=== PATIENT | male | born 1955 | race Hispanic/Latino ===

== ENCOUNTER 2019-03-30 09:30 | Inpatient (IN) | payer SELFPAY ==
[2019-03-30] VITALS (21 sets, daily range): BP systolic 95–156; BP diastolic 56–91
[~2019-03-30] VITALS: Ht 177.8 cm; Wt 72.4 kg
[2019-03-30] MEDS ORDERED: ONDANSETRON HCL 4 MG/2 ML VIAL ONE ×2 (10:30→14:28)
[2019-03-30] MEDS ORDERED: SODIUM CHLORIDE 0.9% 1000ML 1,000 ML IV ONE ×2 (10:31→13:03)
[2019-03-30] MEDS ORDERED: MORPHINE SULFATE 4 MG/1ML SYG ONE ×2 (10:31→11:56)
[2019-03-30 10:46] LABS: BASOPHILS % (AUTO) 0.5 % (0.0-5.0); EOSINOPHILS % (AUTO) 0.8 % (0.0-8.0); HEMATOCRIT 43.8 % (42-54); LYMPHOCYTES % (AUTO) 15.9 % (21.0-51.0); MEAN CORPUSCULAR HEMOGLOBIN 31.7 pg (27.0-33.0); MEAN CORPUSCULAR HGB CONC 35.2 g/dL (32.0-36.0); MEAN CORPUSCULAR VOLUME 89.8 fL (79-99); MONOCYTES % (AUTO) 6.1 % (3.0-13.0); NEUTROPHILS % (AUTO) 76.7 % (40.0-77.0); PLATELET COUNT (AUTO) 109 K/uL (130-400); RED BLOOD CELL COUNT(AUTO) 4.87 MIL/uL (4.50-6.20); RED CELL DISTRIBUTION WIDTH 13.9 % (11.0-15.5); WHITE BLOOD COUNT (AUTO) 8.6 K/uL (4.8-10.8)
[2019-03-30 10:57] LABS: INR 0.96 (0.85-1.15); PARTIAL THROMBOPLASTIN TIME 24.3 SEC (26.3-35.5); PROTHROMBIN TIME 10.1 SEC (9.6-11.6)
[2019-03-30 11:03] LABS: ALBUMIN 4.1 g/dL (3.5-5.0); BILIRUBIN,TOTAL 0.6 mg/dL (0.2-1.0); TOTAL PROTEIN, SERUM 7.8 g/dL (6.0-8.3)
[2019-03-30] MEDS ORDERED: IOHEXOL-350 75 ML VIAL IV ONE (11:08)
[2019-03-30] MEDS ORDERED: KETOROLAC TROMETHAMINE 30MG/ML ONE (12:07)
[2019-03-30] MEDS ORDERED: ZOSYN 3.375GM+NS 50ML 50 ML IV ONE (12:47)
[2019-03-30] MEDS ORDERED: HYDROMORPHONE 1 MG/1 ML AMP ONE (13:02)
[2019-03-30] MEDS ORDERED: BUPIVACAINE/PF 0.5% 30ML VIAL ONE (13:58)
[2019-03-30] MEDS ORDERED: DEXAMETHASONE SOD PHOSPHATE 10MG/ML 1ML VIAL ONE (14:27)
[2019-03-30] MEDS ORDERED: SUCCINYLCHOLINE 200MG/10ML SYR ONE (14:27)
[2019-03-30] MEDS ORDERED: LIDOCAINE PF 2% 5ML ABBOJECT ONE (14:27)
[2019-03-30] MEDS ORDERED: PROPOFOL 10 MG/ML 20ML VIAL IV ONE (14:28)
[2019-03-30] MEDS ORDERED: GLYCOPYRROLATE 1 MG/5 ML SYRINGE ONE (14:28)
[2019-03-30] MEDS ORDERED: MIDAZOLAM HCL 1 MG/ML 2ML VIAL ONE (14:28)
[2019-03-30] MEDS ORDERED: NEOSTIGMINE 5MG/5ML SYR IV ONE (14:28)
[2019-03-30] MEDS ORDERED: ROCURONIUM 10MG/1ML SYR 10 MG/ML ML ONE (14:29)
[2019-03-30] MEDS ORDERED: FENTANYL CITRATE PF 50 MCG/1 ML 2ML VIAL ONE (14:29)
[2019-03-30] MEDS ORDERED: EPHEDRINE SULFATE 50 MG/ML AMPULE ONE (14:32)
[2019-03-30] MEDS ORDERED: IPRATROPIUM/ALBUTEROL SULFATE 3 ML SOLUTION IH ONE (16:50)
--- NOTE | 2019-03-30 20:00 | NUR ---
assessment note patient awake, alert, ox3, no sob,no pain at this time, encourage deep breathing exercises,dressing abdomen d/i, ivf infusing well, teach plan of care and expected outcome, verbalizes understanding via teach back
[2019-03-30] MEDS: KETOROLAC TROMETHAMINE 15MG/ML IV SCH (20:39)
[2019-03-30] MEDS: SODIUM CHLORIDE 0.9% 1000ML 1,000 ML IV SCH (20:41)
[2019-03-30] MEDS: ACETAMINOPHEN-CODEINE 300/30MG TAB PO PRN (23:34)
[2019-03-31] MEDS: KETOROLAC TROMETHAMINE 15MG/ML IV SCH (03:20)
[2019-03-31 04:04] VITALS: BP 115/69
[2019-03-31 04:58] LABS: HEMATOCRIT 39.9 % (42-54); MEAN CORPUSCULAR HEMOGLOBIN 31.7 pg (27.0-33.0); MEAN CORPUSCULAR HGB CONC 35.3 g/dL (32.0-36.0); MEAN CORPUSCULAR VOLUME 89.8 fL (79-99); PLATELET COUNT (AUTO) 107 K/uL (130-400); RED BLOOD CELL COUNT(AUTO) 4.44 MIL/uL (4.50-6.20); RED CELL DISTRIBUTION WIDTH 14.1 % (11.0-15.5); WHITE BLOOD COUNT (AUTO) 9.7 K/uL (4.8-10.8)
[2019-03-31 05:08] LABS: CREATININE 1.1 mg/dL (0.5-1.5); POTASSIUM 3.7 mmol/L (3.5-5.1)
[2019-03-31 05:12] LABS: BAND NEUTROPHILS % (MANUAL) 32 % (0-2); LYMPHOCYTES % (MANUAL) 7 % (22-44); MONOCYTES % (MANUAL) 9 % (2-9); SEGMENTED NEUTROPHILS % 52 % (40-70)
[2019-03-31 05:14] LABS: MAN.DIFF COMMENT-IMPRESSION MANUAL DIFFERENTIAL; PLATELET MORPHOLOGY COMMENT SLIGHTLY DECREASED
[2019-03-31] MEDS: ACETAMINOPHEN-CODEINE 300/30MG TAB PO PRN ×4 (05:43→20:10)
[2019-03-31 08:00] VITALS: BP 114/67
--- NOTE | 2019-03-31 08:17 | NUR ---
Received verbal order for Incentive spirometry and to promote ambulation. Addendum: 03/31/19 at 0818 by BRITTNI MARRUFO RN RN Order received by Dr. Narvaez
[2019-03-31] MEDS: SODIUM CHLORIDE 0.9% 1000ML 1,000 ML IV SCH ×2 (09:20→21:48)
[2019-03-31] MEDS ORDERED: OMEP-50 PO (11:14)
[2019-03-31] MEDS ORDERED: ATOR10 PO (11:14)
[2019-03-31] MEDS ORDERED: AMLO10TA7 PO (11:14)
[2019-03-31 12:00] VITALS: BP 110/64
--- NOTE | 2019-03-31 12:00 | NUR ---
Patient reports acute pain to abdominal site after coughing. Assessed dressing, clean, dry and intact. Patient denies sensation of popping to abdomen. IV Morpine to be administered for aching pain of 8 on 0-10 pain scale. Patient educated to splint abdomen with pillow when needing to cough. Patient provided return demonstration of splinting pillow. Bed low, locked, call greene within reach. Addendum: 03/31/19 at 1308 by BRITTNI MARRUFO RN RN Amended: Links added.
[2019-03-31] MEDS: MORPHINE SULFATE 4 MG/1ML SYG IVP PRN ×2 (12:16→22:45)
--- NOTE | 2019-03-31 14:34 | NUR ---
DCP CM met with pt discussed dc plans. Pt is independent prior to admission, lives at home w/spouse. Denies any equipments/services. Feels safe to go back home, still works and drives, spouse able to assist with transportation and needs as necessary. DC plan to home once stable. CM to cont to follow up. Addendum: 03/31/19 at 1435 by CHARLES AMATO LVN CM Amended: Links added.
[2019-03-31 16:00] VITALS: BP 123/70
--- NOTE | 2019-03-31 16:08 | NUR ---
Patient ambulated 240 feet around room and down [address] way. Became winded towards latter walk, educated to breath in through nose and out through mouth. 95% on 3L NC. Assisted to bed, reminded to splint with pillow when needing to cough or sneeze. Verbalized understanding. Reports performing IS hourly and surpassing goal of 1750 mL.
--- NOTE | 2019-03-31 20:00 | NUR ---
teaching encourage deep breathing and reinforce is as previously done, dressing abdomen d/i, ivf infusing well, teach patient plan of care and expected outcome, patient verbalizes understanding via teach back
[2019-03-31 20:08] VITALS: BP 129/77
[2019-04-01 01:07] VITALS: BP 132/76
[2019-04-01 04:42] VITALS: BP 118/75
[2019-04-01] MEDS: MORPHINE SULFATE 4 MG/1ML SYG IVP PRN ×4 (05:07→23:55)
[2019-04-01 07:30] VITALS: BP 132/76
[2019-04-01] MEDS: PANTOPRAZOLE SODIUM 40 MG TABLET.DR PO SCH (08:45)
[2019-04-01] MEDS ORDERED: ATORVASTATIN CALCIUM 10 MG TABLET PO SCH (09:00)
[2019-04-01] MEDS ORDERED: AMLODIPINE BESYLATE 5 MG TAB PO SCH (09:00)
[2019-04-01] MEDS: AMLODIPINE BESYLATE 5 MG TAB PO SCH (09:13)
[2019-04-01 11:00] VITALS: BP 140/77
[2019-04-01] MEDS: SODIUM CHLORIDE 0.9% 1000ML 1,000 ML IV SCH (12:00)
[2019-04-01 16:00] VITALS: BP 152/89
[2019-04-01] MEDS: SIMETHICONE 80 MG TAB.CHEW PO SCH (17:16)
[2019-04-01] MEDS: ATORVASTATIN CALCIUM 10 MG TABLET PO SCH (19:46)
[2019-04-01] MEDS: DOCUSATE SODIUM 100 MG CAP PO SCH (19:47)
[2019-04-01 20:00] VITALS: BP 137/86
[2019-04-02] MEDS: SODIUM CHLORIDE 0.9% 1000ML 1,000 ML IV SCH ×2 (00:28→14:40)
[2019-04-02 00:38] VITALS: BP 141/81
[2019-04-02 04:00] VITALS: BP 137/79
[2019-04-02 08:00] VITALS: BP 150/89
[2019-04-02] MEDS: ACETAMINOPHEN-CODEINE 300/30MG TAB PO PRN ×2 (10:20→16:22)
[2019-04-02] MEDS: DOCUSATE SODIUM 100 MG CAP PO SCH ×2 (10:20→21:51)
[2019-04-02] MEDS: PANTOPRAZOLE SODIUM 40 MG TABLET.DR PO SCH (10:20)
[2019-04-02] MEDS: SIMETHICONE 80 MG TAB.CHEW PO SCH ×2 (10:20→18:28)
[2019-04-02] MEDS: AMLODIPINE BESYLATE 5 MG TAB PO SCH (10:20)
[2019-04-02 11:56] VITALS: BP 149/86
[2019-04-02 16:00] VITALS: BP 136/78
--- NOTE | 2019-04-02 16:23 | NUR ---
PATIENT AMBULATED 100 FT,TOLERATED WELL
[2019-04-02 20:00] VITALS: BP 125/76
[2019-04-02] MEDS: ATORVASTATIN CALCIUM 10 MG TABLET PO SCH (21:51)
[2019-04-03] VITALS (7 sets, daily range): BP systolic 132–156; BP diastolic 80–90
[2019-04-03] MEDS: AMLODIPINE BESYLATE 5 MG TAB PO SCH (07:18)
[2019-04-03] MEDS: PANTOPRAZOLE SODIUM 40 MG TABLET.DR PO SCH (07:18)
[2019-04-03] MEDS: SIMETHICONE 80 MG TAB.CHEW PO SCH ×2 (07:18→18:00)
[2019-04-03] MEDS: DOCUSATE SODIUM 100 MG CAP PO SCH ×2 (07:18→21:00)
[2019-04-03] MEDS: SODIUM CHLORIDE 0.9% 1000ML 1,000 ML IV SCH ×2 (07:19→17:20)
--- NOTE | 2019-04-03 13:16 | NUR ---
PAGED DR. COYNE , PT. HAS HAD HICCUPS ALL MORNING.
[2019-04-03] MEDS: ATORVASTATIN CALCIUM 10 MG TABLET PO SCH (21:00)
--- NOTE | 2019-04-04 02:33 | NUR ---
HICCUPS PT REPORTS SIGNIFICANT DECREASE IN HICCUPS. NO DISCOMFORT OR PAIN REPORTED. NPO STATUS CONTINUES UNTIL MD CAN ASSESS THE PATIENT.
[2019-04-04 03:00] VITALS: BP 139/76
[2019-04-04] MEDS: SODIUM CHLORIDE 0.9% 1000ML 1,000 ML IV SCH ×2 (06:40→21:11)
[2019-04-04 08:00] VITALS: BP 141/77
[2019-04-04] MEDS: AMLODIPINE BESYLATE 5 MG TAB PO SCH (09:00)
[2019-04-04] MEDS: SIMETHICONE 80 MG TAB.CHEW PO SCH ×2 (09:00→17:47)
[2019-04-04] MEDS: PANTOPRAZOLE SODIUM 40 MG TABLET.DR PO SCH (09:00)
[2019-04-04] MEDS: DOCUSATE SODIUM 100 MG CAP PO SCH ×2 (09:00→21:10)
[2019-04-04 12:00] VITALS: BP 138/84
[2019-04-04] MEDS: METOCLOPRAMIDE 5 MG TABLET PO SCH ×2 (13:48→21:10)
[2019-04-04 16:00] VITALS: BP 134/73
[2019-04-04 19:48] VITALS: BP 133/74
[2019-04-04] MEDS: ATORVASTATIN CALCIUM 10 MG TABLET PO SCH (21:10)
[2019-04-04 23:56] VITALS: BP 113/62
[2019-04-05 03:19] VITALS: BP 121/65
[2019-04-05 07:35] VITALS: BP 124/67
--- NOTE | 2019-04-05 07:36 | NUR ---
pt is now on room air. O2 extension not in use. Addendum: 04/05/19 at 0737 by CONTRERAS RIVAS RT Amended: Links added.
[2019-04-05] MEDS ORDERED: FLU VACC QS2019-20 36MOS UP/PF 60 MCG/0.5 ML ML IM ONE (08:58)
[2019-04-05] MEDS: SIMETHICONE 80 MG TAB.CHEW PO SCH ×2 (09:02→17:22)
[2019-04-05] MEDS: AMLODIPINE BESYLATE 5 MG TAB PO SCH (09:02)
[2019-04-05] MEDS: DOCUSATE SODIUM 100 MG CAP PO SCH (09:02)
[2019-04-05] MEDS: PANTOPRAZOLE SODIUM 40 MG TABLET.DR PO SCH (09:02)
[2019-04-05] MEDS: METOCLOPRAMIDE 5 MG TABLET PO SCH ×2 (09:02→17:22)
[2019-04-05] MEDS: SODIUM CHLORIDE 0.9% 1000ML 1,000 ML IV SCH (09:20)
[2019-04-05 12:00] VITALS: BP 127/76
[2019-04-05 16:00] VITALS: BP 132/77
--- NOTE | 2019-04-05 17:38 | NUR ---
ALEXIS SCREEN - LOS X 6 Pt admitted for Abdominal trauma. Pt s/p Ex Lab Small Bowel Repair 03/30. Pt tolerating Heart Healthy Diet Order with no report of GI distress and Good PO intake (100%) as per Pt. Pt LBM 04/04/19. Pt monitored labs: Glu 140, Ca 7.9, Alb 4.1. RD to continue to monitor. Please notify as nutritional concerns arise. Thank you. Addendum: 04/05/19 at [address] RD Amended: Links added.
--- NOTE | 2019-04-05 17:50 | NUR ---
DISCHARGED DISCHARGE INSTRUCTIONS GIVEN TO PATIENT, VERBALIZED UNDERSTANDING. FOLLOW UP APPOINTMENT SET UP WITH DR COYNE FOR 04/23/2019 AT 10AM. NO NEW PRESCRIPTIONS WERE GIVEN. PATIENT WAS INFORMED BY DANIEL JOHNSON TO TAKE TYLENOL FOR PAIN AT HOME RECOMMENDED ON BOTTLE. IV REMOVED.
== END 2019-04-05 17:40 | disposition home or self-care (01) | DRG 331 ==
LOC: EDH 09:30 → EDHIP 09:31 → 3AH 17:51
PROVIDERS: ADMIT Student in an Organized Health Care Education/Training Program; ATTEND Student in an Organized Health Care Education/Training Program
PROC: 0DB80ZZ Excision of Small Intestine, Open Approach (ICD-10-PCS; 2019-03-30)
PROC: 0DQ80ZZ Repair Small Intestine, Open Approach (ICD-10-PCS; principal; 2019-03-30 15:05)
PROC: 3E02340 Introduction of Influenza Vaccine into Muscle, Percutaneous Approach (ICD-10-PCS; 2019-04-05)
DX: S36.439A Laceration of unspecified part of small intestine, initial encounter (principal); W50.1XXA Accidental kick by another person, initial encounter; Y93.89 Activity, other specified; Y92.89 Other specified places as the place of occurrence of the external cause; Y99.8 Other external cause status; Z23 Encounter for immunization
CPT/HCPCS: 36415; 74018; 74177; 80048; 80053; 82550; 83690; 84484; 85025; 85610; 85730; 86850; 86900; 86901; 93005; 94640; 99291; A4344; A4606; G0378; J0330; J1100; J1170; J1885; J2001; J2250; J2270; J2405; J2543; J2704; J2710; J3010; J3490; J7030; J7120; Q2035; Q9967